=== PATIENT | female | born 1955 | race Caucasian/White ===

== ENCOUNTER 2017-11-24 07:34 | Outpatient (CLI) | payer BC ==
[2017-11-24] MEDS ORDERED: Iopamidol 370 76% 100 ML VIAL ONE (09:00)
--- NOTE | 2017-11-24 10:29 | CT ---
ABDOMEN AND PELVIS CT WITH COTNRAST: COMPARISON: 09/17/14. CLINICAL HISTORY: Anemia, hiatal hernia, umbilical hernia. FINDINGS: There is no evidence of focal hepatic or splenic mass. No peripancreatic inflammation. Adrenal gla nds and kidneys reveal no acute pathology. Contrast-opacified small bowel is normal caliber. There is moderate retained fecal material of the colon. No free air or ascites. There are scattered colon ic diverticula. Howe artifact from right hip hardware limits visualization of the low abdomen and p nai. The urinary bladder is incompletely distended with wall prominence and perivesicular fat stra nding. There is scattered vascular calcification. There is asymmetric atrophy of the right psoas mu scle. There is evidence to suggest prior herniorrhaphy at the umbilical region. Just inferior to th e herniorrhaphy site, there is a fat-containing, adjacent ventral abdominal wall hernia. IMPRESSION: 1. Moderate-sized hiatal hernia. 2. Colonic diverticulosis and retained fecal material of the colon. 3. Normal caliber small bowel. 4. Additional details are described above. POS: [facility]
== END 2017-11-24 07:35 | disposition home or self-care (01) ==
LOC: SCSCT 07:34
PROVIDERS: ATTEND Internal Medicine Gastroenterology
DX: K44.9 Diaphragmatic hernia without obstruction or gangrene (principal); D50.9 Iron deficiency anemia, unspecified; K21.9 Gastro-esophageal reflux disease without esophagitis; K57.30 Diverticulosis of large intestine without perforation or abscess without bleeding; K43.9 Ventral hernia without obstruction or gangrene; M62.50 Muscle wasting and atrophy, not elsewhere classified, unspecified site; Z80.0 Family history of malignant neoplasm of digestive organs
CPT/HCPCS: 74177

== ENCOUNTER 2021-10-08 12:18 | Outpatient (CLI) | payer BC ==
[2021-10-08 13:00] LABS: #Basophils 0.1 10x3/uL (0.0-0.2); #Eosinphils 0.2 10x3/uL (0.0-0.5); #Monocytes 0.7 10x3/uL (0.0-1.1); %Basophils 1.1 % (0.0-2.0); %Eosinophils 2.8 % (0.0-6.0); %Lymphocytes 32.3 % (18.0-47.0); %Neutrophils 54.3 % (40.0-75.0); Hemoglobin 8.8 g/dL (12.0-15.5); Mean Corpuscular HGB CONC 31.5 g/dL (32.0-36.0); Mean Corpuscular Hemoglobin 26.7 pg (27.0-33.0); Mean Corpuscular Volume 84.8 fl (81.6-98.3); Mean Platelet Volume 9.6 fl (7.4-10.4); Platelet Count 484 10x3/uL (150-450); RBC Distribution Width 14.9 % (11.5-14.5); Red Blood Cell (RBC) Count 3.29 10x6/uL (3.90-5.03); White Blood Cell (WBC) Count 7.4 10x3/uL (3.5-10.5)
[2021-10-08 13:08] LABS: Anion Gap 14 mmol/L (10-20); BUN (Urea Nitrogen) 21 mg/dL (9.8-20.1); Calc. Creatinine Clearance 0 mL/min (70-130); Calcium 9.6 mg/dL (7.8-10.44); Carbon Dioxide 19 mmol/L (23-31); Chloride 111 mmol/L (98-107); Estimated GFR 46; Glucose 97 mg/dL (80-115); Potassium 4.3 mmol/L (3.5-5.1); Sodium 140 mmol/L (136-145)
== END 2021-10-08 12:19 | disposition home or self-care (01) ==
LOC: LABBT 12:18
PROVIDERS: ATTEND Surgery
DX: Z01.812 Encounter for preprocedural laboratory examination (principal); K44.9 Diaphragmatic hernia without obstruction or gangrene; Z20.822 Contact with and (suspected) exposure to COVID-19
CPT/HCPCS: 80048; 85025; 87811

== ENCOUNTER 2021-10-13 05:48 | Observation (INO) | payer BC ==
[2021-10-09 10:18] VITALS: BMI 22.2
[2021-10-13] MEDS ORDERED: Bupivacaine/Epinephrine 0.25% 30 ML VIAL ONE (06:44)
[2021-10-13] MEDS ORDERED: Sodium Chloride 0.9% 100 ML ONE (07:21)
[2021-10-13] MEDS ORDERED: CEFAZOLIN 2 GM VIAL ONE (07:21)
[2021-10-13] MEDS ORDERED: fentaNYL Citrate/PF 100 MCG/2 ML SYRINGE ONE (07:28)
[2021-10-13] MEDS ORDERED: Ketamine 50 MG/ML (10ML VIAL) ONE (07:30)
[2021-10-13] MEDS ORDERED: Lidocaine 2% PF 5 ML VIAL ONE (07:36)
[2021-10-13] MEDS ORDERED: Neostigmine Methylsulfate 3 MG/3 ML SYRINGE ONE (07:37)
[2021-10-13] MEDS ORDERED: Rocuronium Bromide 10 MG/ML (10ML VIAL) ONE (07:37)
[2021-10-13] MEDS ORDERED: ePHEDrine 50 MG/ML VIAL ONE (07:37)
[2021-10-13] MEDS ORDERED: PROPOFOL 200 MG/20 ML VIAL ONE (07:37)
[2021-10-13] MEDS ORDERED: Glycopyrrolate 0.2 MG/ML 5 ML SYRINGE ONE (07:37)
[2021-10-13] MEDS ORDERED: Lidocaine 1% PF 5 ML VIAL ONE (07:37)
[2021-10-13] MEDS ORDERED: Ondansetron PF 4 MG/2 ML Vial ONE (07:37)
[2021-10-13] MEDS ORDERED: Promethazine HCl 25 MG/ML VIAL IVPB PRN (08:38)
[2021-10-13] MEDS ORDERED: diphenhydrAMINE 50 MG/ML VIAL IVP PRN (08:38)
[2021-10-13] MEDS ORDERED: diphenhydrAMINE 50 MG/ML VIAL IM PRN (08:38)
[2021-10-13] MEDS ORDERED: Naloxone HCl 0.4 mg/ml Vial IV PRN (08:38)
[2021-10-13] MEDS ORDERED: diphenhydrAMINE 25 MG CAP PO PRN (08:38)
[2021-10-13] MEDS ORDERED: Promethazine HCl 25 MG/ML VIAL IM PRN ×3 (08:38→09:32)
[2021-10-13] MEDS ORDERED: fentaNYL Citrate/PF 2,000 MCG in Sodium Chloride 0.9% 60 ML IV PRN (08:38)
[2021-10-13] MEDS ORDERED: Ondansetron PF 4 MG/2 ML Vial IVP PRN ×2 (08:38→09:32)
[2021-10-13] MEDS ORDERED: Ondansetron HCl/PF 4 MG/2 ML Vial IVP PRN (08:38)
[2021-10-13] MEDS ORDERED: Communication Order-Pharmacy FS SCH (08:45)
[2021-10-13] MEDS ORDERED: hydrALAZINE 20 MG/ML VIAL SLOW IVP PRN (09:32)
[2021-10-13] MEDS ORDERED: Dextrose 5% in Water 1,000 ML IV PRN (09:32)
[2021-10-13] MEDS ORDERED: CARISOPRODOL 350 MG PO PRN (09:32)
[2021-10-13] MEDS ORDERED: Dextrose 50% Abboject 50 ML SYRINGE SLOW IVP PRN (09:32)
[2021-10-13] MEDS ORDERED: Non-Formulary Item 1 EACH (Prednisone [Prednisone] 10 MG Tablet) PO PRN (09:32)
[2021-10-13] MEDS ORDERED: ALPRAZolam 0.5 MG TAB PO PRN (09:32)
[2021-10-13] MEDS ORDERED: predniSONE 5 MG TAB PO PRN (10:13)
[2021-10-13] MEDS: D5 1/2 NS w/20 mEq KCL 1,000 ML IV SCH (14:50)
[2021-10-13] MEDS ORDERED: SUMAtriptan Succinate 50 MG TAB PO PRN (16:39)
[2021-10-13] MEDS: Famotidine 20 MG TAB PO SCH (20:59)
[2021-10-13] MEDS: Famotidine/PF 20 mg/2ml Vial SLOW IVP SCH (21:00)
[2021-10-13] MEDS: Cyclobenzaprine 10 MG TAB PO PRN (21:10)
[2021-10-14] MEDS ORDERED: Levothyroxine Sodium 100 MCG TAB PO SCH (06:00)
[2021-10-14 06:03] LABS: #Basophils 0.1 thou/uL (0.0-0.2); #Eosinphils 0.2 thou/uL (0.0-0.7); #Lymphocytes 0.9 thou/uL (1.20-3.40); #Monocytes 0.9 thou/uL (0.11-0.59); #Neutrophils 6.4 thou/uL (1.40-6.50); %Basophils 0.6 % (0.0-1.0); %Eosinophils 2.1 % (0.0-10.0); %Lymphocytes 11.1 % (21.0-51.0); %Monocytes 10.4 % (0.0-10.0); %Neutrophils 75.9 % (42.0-75.0); Hemoglobin 8.5 g/dL (12.0-16.0); Mean Corpuscular HGB CONC 31.9 g/dL (32.0-36.0); Mean Corpuscular Hemoglobin 27.4 pg (27.0-31.0); Mean Corpuscular Volume 85.8 fL (78.0-98.0); Mean Platelet Volume 7.2 fL (7.4-10.4); Platelet Count 316 thou/uL (130-400); White Blood Cell (WBC) Count 8.5 thou/uL (4.8-10.8)
[2021-10-14] MEDS: D5 1/2 NS w/20 mEq KCL 1,000 ML IV SCH ×2 (06:03→09:21)
[2021-10-14 06:27] LABS: Anion Gap 15 mmol/L (10-20); BUN (Urea Nitrogen) 9 mg/dL (9.8-20.1); Calc. Creatinine Clearance 62 mL/min (70-130); Calcium 9.2 mg/dL (7.8-10.44); Carbon Dioxide 20 mmol/L (23-31); Chloride 108 mmol/L (98-107); Estimated GFR 70; Glucose 114 mg/dL (80-115); Potassium 4.3 mmol/L (3.5-5.1); Sodium 139 mmol/L (136-145)
[2021-10-14] MEDS ORDERED: Venlafaxine HCl XR 150 MG CAP PO SCH (09:00)
[2021-10-14] MEDS: Famotidine 20 MG TAB PO SCH (09:15)
[2021-10-14] MEDS: Cyclobenzaprine 10 MG TAB PO PRN (09:21)
[2021-10-14] MEDS: Famotidine/PF 20 mg/2ml Vial SLOW IVP SCH (09:24)
[2021-10-14 12:56] VITALS: BP 172/76; TEMP 98.4
== END 2021-10-14 14:43 | disposition home or self-care (01) ==
LOC: SDC 05:48 → SURG A 11:42
PROVIDERS: ADMIT Surgery; ATTEND Surgery
PROC: 0DV44ZZ Restriction of Esophagogastric Junction, Percutaneous Endoscopic Approach (ICD-10-PCS; principal; 2021-10-13)
PROC: 8E0W4CZ Robotic Assisted Procedure of Trunk Region, Percutaneous Endoscopic Approach (ICD-10-PCS; 2021-10-13)
DX: K44.9 Diaphragmatic hernia without obstruction or gangrene (principal); K25.9 Gastric ulcer, unspecified as acute or chronic, without hemorrhage or perforation; K21.9 Gastro-esophageal reflux disease without esophagitis; Z79.890 Hormone replacement therapy; Z79.899 Other long term (current) drug therapy; Z88.0 Allergy status to penicillin
CPT/HCPCS: 36415; 80048; 85025; 86850; 86900; 86901; J0690; J2001; J2405; J2704; J3010; J3480; J3490

== ENCOUNTER 2022-10-13 08:38 | Outpatient (CLI) | payer MEDICARE | END 2022-10-13 08:39 | disposition home or self-care (01) | LOC: BICMAMMO 08:38 | PROVIDERS: ATTEND Internal Medicine Rheumatology | DX: Z13.820 Encounter for screening for osteoporosis (principal); M54.50 Low back pain, unspecified; L40.50 Arthropathic psoriasis, unspecified; M54.2 Cervicalgia; M85.89 Other specified disorders of bone density and structure, multiple sites; Z78.0 Asymptomatic menopausal state | CPT/HCPCS: 77080 ==

== ENCOUNTER 2022-10-13 09:29 | Outpatient (CLI) | payer MEDICARE | END 2022-10-13 09:30 | disposition home or self-care (01) | LOC: RAD 09:29 | PROVIDERS: ATTEND Internal Medicine Rheumatology | DX: M54.50 Low back pain, unspecified (principal); L40.50 Arthropathic psoriasis, unspecified; M54.2 Cervicalgia; M47.816 Spondylosis without myelopathy or radiculopathy, lumbar region; M47.812 Spondylosis without myelopathy or radiculopathy, cervical region; Z78.0 Asymptomatic menopausal state | CPT/HCPCS: 72040; 72100; 77080; 82728; 83540; 83550 ==